=== PATIENT | female | born 1975 | race Caucasian/White ===

== ENCOUNTER 2017-03-20 15:05 | Emergency (ER) | payer BC ==
[~2017-03-20] VITALS: Ht 177.8 cm; Wt 108.9 kg
[~2017-03-20 15:05] MED LIST: AMOXICILLIN875 MG PO; ATIVAN PO; ATIVAN0.5 MG PO; BUSPAR PO; CYMBALTA30 MG PO; DESYREL50 MG PO; DICLOFENAC PO; DIFLUCAN PO; EFFEXOR PO; FLEXERIL10 MG PO; HYDROCODON-ACE1 EAC5 PO; KEFLEX500 MG PO; KLONOPIN PO; LISINOPRIL-HCTZ1 T15 PO; LYRICA PO; MEDROL2 MG PO; MEDROL4 MG/DOSE- PO; MICARDIS HCT 801 TAB PO; NAPROXEN PO; NEURONTIN300 MG PO; PEPCID AC20 M2 PO; PERCOCET PO; PHENERGAN PO; PRAVACHOL80 MG PO; PROZAC PO; TOPAMAX; TYLENOL PM EX-S1 TA4 PO; VICODIN 5/500 T1 TAB PO; VOLTAREN5 ML PO; XANAX1 MG PO; ZITHROMAX PO; ZITHROMAX1 G/PKT PO; [UNRECOGNIZED DRUG - OTHER]; [UNRECOGNIZED DRUG - REMARK]
== END 2017-03-20 16:26 | disposition home or self-care (01) ==
LOC: SED 15:05
DX: K11.20 Sialoadenitis, unspecified (principal); I10 Essential (primary) hypertension; F41.9 Anxiety disorder, unspecified; K21.9 Gastro-esophageal reflux disease without esophagitis; Z90.49 Acquired absence of other specified parts of digestive tract; Z90.89 Acquired absence of other organs; Z79.899 Other long term (current) drug therapy
CPT/HCPCS: 99283